=== PATIENT | female | born 1955 | race Caucasian/White ===

== ENCOUNTER → 2018-04-11 | Outpatient (CLI) | payer BC, MEDICARE ==
[~2018-04-11] MED LIST: DICY10CA26; EST.1TD; FEXO180T; HYDR1CAP2; PNT40TEC; ULTRACET
--- NOTE | 2018-04-11 12:50 | Diagnostic Imaging Report ---
INDICATION: Bilateral hip pain and low back pain. TIME OF EXAM: 10:09 AM An AP view as well as multiple views bilateral hips were obtained. Femoral acetabular alignment is normal bilaterally. Both femoral heads and necks are intact. The rami are intact. SI joints and symphysis are non-widened. No fractures are seen. There does appear to be some mild superior joint space narrowing of bilateral hips. Minimal spurring along the superolateral aspect of the acetabula is noted bilaterally. IMPRESSION: Mild degenerative changes bilateral hips. No acute bony abnormality is detected. Dictated by: Dictated on workstation # [id number]
--- NOTE | 2018-04-11 13:32 | Diagnostic Imaging Report ---
INDICATION: History of right hip dislocation one year ago. Low back pain. Bilateral hip pain. TECHNIQUE: AP, lateral, and spot imaging of the lumbar spine. CORRELATION STUDY: None. FINDINGS: Very mild S-type scoliotic curvature is present. Lumbar vertebral body heights are maintained. Minimal areas of the intervertebral disc herniation are present. There is marked disc space narrowing at the L5-S1 and L4-L5 levels with reactive endplate sclerosis and osteophyte formation. There is likely some degree of osseous encroachment on the foramina. The sclerosis and osteophyte formation is disproportionately greater on the right at L4-L5. Moderate additional disc space narrowing at the T12-L1 level. IMPRESSION: No radiographic evidence for acute bony abnormality of the lumbar spine. Advanced multilevel disc space narrowing. Findings are most pronounced at the L4-L5 and L5-S1 levels with reactive endplate sclerosis and osteophyte formation. This likely results in some potential osseous encroachment on the foramina and/or spinal canal. Dictated by: Dictated on workstation # [id number]
== END ==
LOC: RAD 09:34
PROVIDERS: ATTEND Family Medicine
DX: M51.37 Other intervertebral disc degeneration, lumbosacral region (principal); M16.0 Bilateral primary osteoarthritis of hip; Z87.39 Personal history of other diseases of the musculoskeletal system and connective tissue
CPT/HCPCS: 72100; 73523